=== PATIENT | male | born 1990 | race Caucasian/White ===

== ENCOUNTER 2021-09-30 12:18 | Emergency (ER) | payer SELFPAY ==
[2021-09-30 12:29] VITALS: BP 161/84; PULSE 99; TEMP 97.5; BMI 32.1
[2021-09-30 14:28] LABS: BASO % 0.5 % (0-2.0); EOS % 1.1 % (0-4.5); HEMATOCRIT 45.1 % (35.4-49); HEMOGLOBIN 15.5 GM/dL (11.7-16.9); LYMPH % 20.4 % (8-40); MCH 29.3 pg (25.7-33.7); MCHC 34.4 g/dl (32.0-35.9); MEAN CELL VOLUME 85.2 fl (80-96); MEAN PLT VOLUME 7.8 fl (7.5-11.1); MONO % 4.3 % (3.8-10.2); NEUT % 73.7 % (42.8-82.8); PLATELET COUNT 354 10^3/uL (134-434); WHITE BLOOD COUNT 12.7 K/mm3 (4.0-10.0)
[2021-09-30 14:33] LABS: ACTIVATED PTT 47.3 SECONDS (25.2-36.5); INR 1.06 (0.83-1.09); PROTHROMBIN TIME (PATIENT) 12.2 SEC (9.7-13.0)
[2021-09-30 14:47] LABS: CALCIUM 10.4 mg/dL (8.5-10.1)
[2021-09-30 14:48] LABS: ALBUMIN 4.4 g/dl (3.4-5.0); BLOOD UREA NITROGEN 15.6 mg/dL (7-18)
[2021-09-30 14:51] LABS: CREATININE 0.8 mg/dL (0.55-1.3)
[2021-09-30 14:52] LABS: BILIRUBIN,TOTAL 0.3 mg/dL (0.2-1); TOT PROT 8.5 g/dl (6.4-8.2)
== END 2021-09-30 15:22 | disposition home or self-care (01) ==
LOC: JERFT 12:18
DX: R04.0 Epistaxis (principal)
CPT/HCPCS: 36415; 80053; 85025; 85384; 85610; 85730; 99283-25